=== PATIENT | male | born 1950 | race Caucasian/White ===

== ENCOUNTER 2019-08-29 09:11 | Emergency (ER) | payer SELFPAY ==
[~2019-08-29] VITALS: Ht 172.7 cm; Wt 74.8 kg
[2019-08-29 09:22] VITALS: BP 149/106
--- NOTE | 2019-08-29 09:26 | NUR ---
Patient ambulated to bed 2. RN evaluating patient at bedside.
--- NOTE | 2019-08-29 09:30 | NUR ---
C/O RIGHT HIP PAIN RADIATING DOWN LEG, NUMBNESS AND TINGLING TO BOTH HX DM . BS 406, FAMILY STATED PT DID NOT TAKE MEDS FOR SM FOR A LONG TIME. DENIES N/V/D; SKIN IS PINK/WARM/DRY; AAOX4 WITH EVEN AND STEADY GAIT; LUNGS CLEAR BL; HR EVEN AND REGULAR; PT DENIES ANY FEVER, CP, SOB, OR COUGH AT THIS TIME; PATIENT STATES PAIN OF 10/10 AT THIS TIME; VSS; PATIENT POSITIONED FOR COMFORT; HOB ELEVATED; BEDRAILS UP X2; BED DOWN. ER MD MADE AWARE OF PT STATUS. FAMILY AT BEDSIDE.
[2019-08-29] MEDS ORDERED: KETOROLAC 60 MG/2 ML VIAL IM ONE (09:50)
[2019-08-29] MEDS ORDERED: NACL 0.9% 1,000 ML IV ONE (10:30)
[2019-08-29 12:18] VITALS: BP 172/110
--- NOTE | 2019-08-29 12:18 | NUR ---
Patient discharged with v/s stable. Written and verbal after care instructions given and explained. Patient alert, oriented and verbalized understanding of instructions. Ambulatory with steady gait. All questions addressed prior to discharge. ID band removed. Patient advised to follow up with PMD. Rx of Bethel 5mg-25mg and Motrin 800mg given. Patient instructed to not drive while taking narcotics. Patient educated on indication of medication including possible reaction and side effects. Opportunity to ask questions provided and answered.
== END 2019-08-29 12:18 ==
LOC: MED 09:11
DX: M25.551 Pain in right hip (principal); I10 Essential (primary) hypertension
CPT/HCPCS: 82948; 96372; 99283; J1885; J7030